=== PATIENT | female | born 1980 | race Caucasian/White ===

== ENCOUNTER 2021-10-03 19:04 | Emergency (ER) | payer OTHER ==
[2021-10-03 20:42] LABS: Absolute Lymphocytes (CBC) 2.9 K/uL (0.7-4.9); Hematocrit 23.5 % (36.0-45.0); Lymphocytes % 31.2 % (15.3-44.8); MPV 8.5 fL (7.6-11.3); RBC Red Blood Cell Count 4.16 M/uL (3.86-4.86)
[2021-10-03 20:52] LABS: Protime INR 0.98
[2021-10-03 20:57] LABS: Potassium 3.9 mmol/L (3.5-5.1)
[2021-10-03] MEDS ORDERED: NA CHLORIDE 0.9% 250 ML ONE (23:58)
[2021-10-03] MEDS ORDERED: DIPHENHYDRAMINE 50 MG/ML VIAL ONE (23:58)
[2021-10-03] MEDS ORDERED: ACETAMINOPHEN 325 MG TABLET ONE (23:58)
--- NOTE | 2021-10-04 00:21 | EDPHYS ---
Physician Documentation [facility] Name: Stormy Rojas Age: 41 yrs Sex: Female : 1980 Arrival Date: 10/03/2021 Time: 19:08 Bed 3 Private MD: ED Physician Jackson Camacho HPI: 10/03 20:15 This 41 yrs old Female presents to ER via Ambulatory with complaints of Abnormal Lab cp Results. 20:15 low hemoglobin. cp 20:15 Patient reports she was referred to ED by PCP for blood transfusion due to low cp hemoglobin. Patient reports history of low iron level but admits that she does not take iron supplement due to medication causing abdominal pain. Patient denies any black, tarry stools and/or vaginal bleeding at this time. 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 - Social history:: Smoking status: Patient denies any tobacco usage or history of. ROS: 20:20 Constitutional: Negative for body aches, chills, fever, poor PO intake. cp 20:20 Cardiovascular: Negative for chest pain, edema, palpitations. cp 20:20 Respiratory: Negative for cough, shortness of breath, wheezing. Exam: 20:25 Constitutional: The patient appears in no acute distress, alert, awake, cp non-diaphoretic, non-toxic, well developed, well nourished. 20:25 Head/Face: Normocephalic, atraumatic. cp 20:25 Eyes: Periorbital structures: appear normal, Conjunctiva: normal, no exudate, no injection, Sclera: no appreciated abnormality, Lids and lashes: appear normal, bilaterally. 20:25 ENT: External ear(s): are unremarkable, Nose: is normal, Mouth: Lips: moist, Oral mucosa: moist, Posterior pharynx: Airway: no evidence of obstruction, patent. 20:25 Neck: ROM/movement: is normal, is supple, without pain, no range of motions limitations. 20:25 Chest/axilla: Inspection: normal. 20:25 Cardiovascular: Rate: normal, Rhythm: regular, Edema: is not appreciated, JVD: is not appreciated. 20:25 Respiratory: the patient does not display signs of respiratory distress, Respirations: normal, no use of accessory muscles, no retractions, labored breathing, is not present, Breath sounds: are clear throughout, no decreased breath sounds, no stridor, no wheezing. 20:25 Abdomen/GI: Exam negative for discomfort, distension, guarding, Inspection: abdomen appears normal. 20:25 Back: pain, is absent, ROM is normal. 20:25 Neuro: Orientation: to person, place \T\ time. Mentation: is normal, Motor: moves all fours, strength is normal, Sensation: is normal, Gait: is steady, at a normal pace, without difficulty. Vital Signs: 20:03 BP 139 / 85; Pulse 80; Resp 18; Temp 99(O); Pulse Ox 100% on R/A; Weight 72.57 kg; tw5 Height 5 ft. 1 in. (154.94 cm); Pain 0/10; 20:29 BP 136 / 83 Sitting; Pulse 72 RA; mb7 20:29 BP 129 / 78 Standing; Pulse 70 RA; mb7 20:03 Body Mass Index 30.23 (72.57 kg, 154.94 cm) tw5 MDM: 20:58 Patient medically screened. [facility] 10/04 00:20 Data reviewed: vital signs, nurses notes, lab test result(s). 00:20 Differential Diagnosis anemia, iron deficiency, GI bleed, vaginal bleed. Counseling: I cp had a detailed discussion with the patient and/or guardian regarding: the historical points, exam findings, and any diagnostic results supporting the discharge/admit diagnosis, lab results, the need for outpatient follow up, a family practitioner, to return to the emergency department if symptoms worsen or persist or if there are any questions or concerns that arise at home. 10/03 20:11 Order name: CBC with Diff; Complete Time: 21:33 10/03 21:34 Interpretation: HGB 6.5; HCT 23.5; MCV 56.4; MCH 15.6; MCHC 27.7; RDW 18.7; BASO% 2.0. 10/03 20:11 Order name: PT-INR; Complete Time: 21:33 cp 10/03 20:11 Order name: Ptt, Activated; Complete Time: 21:33 cp 10/03 20:11 Order name: BMP; Complete Time: 21:33 cp 10/03 21:34 Interpretation: Normal except: CL 108. cp 10/03 20:11 Order name: Type And Screen cp 10/03 22:03 Order name: ABO/RH no charge; Complete Time: 22:53 EDMS 10/03 20:11 Order name: Orthostatics; Complete Time: 20:29 cp 10/03 20:11 Order name: IV Saline Lock; Complete Time: 20:29 cp 10/03 20:11 Order name: Labs collected and sent; Complete Time: 21:48 cp 10/03 23:25 Order name: Packed RBC Leukored EDMS 10/03 23:25 Order name: Transfuse; Complete Time: 05:13 cp Administered Medications: 00:30 Drug: Acetaminophen 650 mg Route: PO; 5 01:10 Follow up: Response: No adverse reaction [facility] 00:30 Drug: Benadryl (diphenhydrAMINE) 12.5 mg Route: IVP; Site: right antecubital; 5 01:10 Follow up: Response: No adverse reaction 5 Disposition Summary: 10/04/21 00:20 Discharge Ordered Location: Home cp Problem: new cp Symptoms: have improved cp Condition: Stable cp Diagnosis - Anemia in other chronic diseases classified elsewhere cp Followup: cp - With: Private Physician - When: 2 - 3 days - Reason: Recheck today's complaints Discharge Instructions: - Discharge Summary Sheet cp - Anemia cp - Blood Transfusion, Adult cp Forms: - Medication Reconciliation Form cp - Thank You Letter cp - Antibiotic Education cp - Prescription Opioid Use cp Signatures: Dispatcher [employer] EDJackson Estrada MD MD cha Page, Corey, PA PA cp Wood, Tiffany tw5 Candi Quinn RN RN sm5 Geeta Morse PA PA sb3
--- NOTE | 2021-10-04 00:21 | ER ---
Nurse's Notes [facility] Name: Stormy Rojas Age: 41 yrs Sex: Female : 1980 Arrival Date: 10/03/2021 Time: 19:08 Bed 3 Private MD: Diagnosis: Anemia in other chronic diseases classified elsewhere Presentation: 10/03 20:03 Chief complaint: Patient states: "My hemoglobin is low at 6.5. 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 Coronavirus screen: Vaccine status: Patient reports receiving the 2nd dose of the covid vaccine. Moderna. Ebola Screen: Patient negative for fever greater than or equal to 101.5 degrees Fahrenheit, and additional compatible Ebola Virus Disease symptoms Patient denies exposure to infectious person. Patient denies travel to an Ebola-affected area in the 21 days before illness onset. Initial Sepsis Screen: Does the patient meet any 2 criteria? No. Patient's initial sepsis screen is negative. Does the patient have a suspected source of infection? No. Patient's initial sepsis screen is negative. Risk Assessment: Do you want to hurt yourself or someone else? Patient reports no desire to harm self or others. Onset of symptoms is unknown. 20:03 Method Of Arrival: Ambulatory tw5 20:03 Acuity: AMRIT 3 tw5 Triage Assessment: 20:07 General: Appears in no apparent distress. Behavior is calm, cooperative, appropriate tw5 for age. Pain: Denies pain. 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 - Social history:: Smoking status: Patient denies any tobacco usage or history of. Screenin:08 Abuse screen: Denies threats or abuse. Denies injuries from another. Nutritional tw5 screening: No deficits noted. Tuberculosis screening: No symptoms or risk factors identified. Fall Risk None identified. Assessment: 22:30 General: Appears in no apparent distress. Behavior is cooperative. Pain: Denies pain. 5 Neuro: No deficits noted. Level of Consciousness is awake, alert, obeys commands, Oriented to person, place, time, situation. Cardiovascular: No deficits noted. Capillary refill < 3 seconds Patient's skin is warm and dry. Respiratory: No deficits noted. Airway is patent Trachea midline Respiratory effort is even, unlabored. Derm: Skin is pale. 23:30 Reassessment: No changes from previously documented assessment. Patient and/or family sm5 updated on plan of care and expected duration. Pain level reassessed. Patient is alert, oriented x 3, equal unlabored respirations, skin warm/dry/pink. 10/04 00:30 Reassessment: No changes from previously documented assessment. Patient and/or family vc1 updated on plan of care and expected duration. Pain level reassessed. Patient is alert, oriented x 3, equal unlabored respirations, skin warm/dry/pink. 01:09 Reassessment: No changes from previously documented assessment. sm5 01:30 Reassessment: No changes from previously documented assessment. Patient and/or family vc1 updated on plan of care and expected duration. Pain level reassessed. 02:30 Reassessment: No changes from previously documented assessment. Patient and/or family vc1 updated on plan of care and expected duration. Pain level reassessed. 03:30 Reassessment: No changes from previously documented assessment. Patient and/or family vc1 updated on plan of care and expected duration. Pain level reassessed. 04:30 Reassessment: No changes from previously documented assessment. Patient and/or family vc1 updated on plan of care and expected duration. Pain level reassessed. General: Appears in no apparent distress. Behavior is calm, cooperative, appropriate for age. Pain: Denies pain. 04:45 Reassessment: See Transfusion sheet for vitals. vc1 05:15 Reassessment: Pt to be discharged after receiving 2nd unit of blood. vc1 Vital Signs: 10/03 20:03 BP 139 / 85; Pulse 80; Resp 18; Temp 99(O); Pulse Ox 100% on R/A; Weight 72.57 kg; tw5 Height 5 ft. 1 in. (154.94 cm); Pain 0/10; 20:29 BP 136 / 83 Sitting; Pulse 72 RA; mb7 20:29 BP 129 / 78 Standing; Pulse 70 RA; mb7 20:03 Body Mass Index 30.23 (72.57 kg, 154.94 cm) tw5 ED Course: 19:08 Patient arrived in ED. kalvin 19:56 Jackson Mckinley PA is PHCP. cp 19:56 Sushila Garcia MD is Attending Physician. cp 20:07 Triage completed. tw5 20:07 Arm band placed on left wrist. tw5 20:10 Patient has correct armband on for positive identification. Bed in low position. Call vc1 light in reach. Client placed on continuous cardiac and pulse oximetry monitoring. NIBP monitoring applied. 20:29 Type And Screen Sent. mb7 20:29 BMP Sent. mb7 20:29 Ptt, Activated Sent. mb7 20:29 PT-INR Sent. mb7 20:29 CBC with Diff Sent. mb7 20:29 Inserted saline lock: 20 gauge in right antecubital area, using aseptic technique. mb7 Blood collected. 20:58 Attending Physician role handed off by Sushila Garcia MD [facility] 20:58 Jackson Camacho MD is Attending Physician. [facility] 21:16 Type And Screen Sent. mb7 21:46 Inserted saline lock: 20 gauge in left antecubital area, using aseptic technique. sm5 22:30 Candi Quinn, RN is Primary Nurse. [facility] 10/04 04:50 No provider procedures requiring assistance completed. vc1 04:50 IV discontinued, intact, bleeding controlled, No redness/swelling at site. Pressure vc1 dressing applied. Administered Medications: 00:30 Drug: Acetaminophen 650 mg Route: PO; sm5 01:10 Follow up: Response: No adverse reaction 5 00:30 Drug: Benadryl (diphenhydrAMINE) 12.5 mg Route: IVP; Site: right antecubital; sm5 01:10 Follow up: Response: No adverse reaction [facility] Medication: 04:50 VIS not applicable for this client. vc1 Outcome: 00:20 Discharge ordered by . cp 04:50 Discharged to home ambulatory. vc1 04:50 Condition: good 04:50 Discharge instructions given to patient, family, Instructed on discharge instructions, follow up and referral plans. Demonstrated understanding of instructions, follow-up care. 05:16 Patient left the ED. vc1 Signatures: Jackson Camacho MD MD cha Page, Corey, PA PA cp Wood, Tiffany tw5 Licha Flower mb7 Candi Quinn, RN RN sm5 Nicolette Mcfadden, RN RN vc1 Elisa Lay
[2021-10-04 05:28] VITALS: TEMP 99; O2SAT 100
[2021-10-04 05:30] VITALS: BP 129/78
== END 2021-10-04 05:16 | disposition home or self-care (01) ==
LOC: ER 19:04
PROC: 30233N1 Transfusion of Nonautologous Red Blood Cells into Peripheral Vein, Percutaneous Approach (ICD-10-PCS; principal; 2021-10-04)
DX: D64.9 Anemia, unspecified (principal); Z98.84 Bariatric surgery status
CPT/HCPCS: 85025; 80048; 36415; 86900; 86850; 85610; 86901; 85730; 96374; 99283; 36430; J1200; P9016 ×2; J7050